=== PATIENT | female | born 1995 | race Caucasian/White ===

== ENCOUNTER 2018-08-19 22:47 | Emergency (ER) | payer OTHER ==
[~2018-08-19] VITALS: Ht 175.3 cm; Wt 131.5 kg
[2018-08-19 23:08] VITALS: BP 126/77
--- NOTE | 2018-08-19 23:11 | NUR ---
PT AMBULATED TO LOBBY WITH VSS. PROVIDING URINE.
--- NOTE | 2018-08-20 | NUR ---
PT BIB FRIEND C/O SOB, ANXIETY, CHEST PRESSURE, LEFT ARM TINGLING X8 HOURS. PT STATES "I AM HAVING HEART ATTACK SYMPTOMS, AND I JUST WANT TO GET A EKG TO RULE OUT IF IM HAVING A HEART ATTACK OR NOT". PT STATES SHE DRANK A LOT OF ALCOHOL YESTERDAY. --DENIES N/V/D. SPEECH CLEAR. SMILE SYMETTRICAL. 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 LUNG SOUNDS CLEAR BL. BOWEL SOUNDS ACTIVE X4 QUAD. PMH: ANXIETY RX: SERTRALINE
[2018-08-20] MEDS ORDERED: LORazepam 2 MG/ML VIAL IM ONE (00:25)
--- NOTE | 2018-08-20 00:50 | NUR ---
PATIENT EXPRESSING WISH TO LEAVE FACILITY.
[2018-08-20 01:01] VITALS: BP 119/82
--- NOTE | 2018-08-20 01:01 | NUR ---
Patient discharged with v/s stable. Written and verbal after care instructions given and explained. Patient alert, oriented and verbalized understanding of instructions. Ambulatory with steady gait. All questions addressed prior to discharge. ID band removed. Patient advised to follow up with PMD. Rx of XANAX 0.5MG given. Patient educated on indication of medication including possible reaction and side effects. Opportunity to ask questions provided and answered.
== END 2018-08-20 01:01 | disposition home or self-care (01) ==
LOC: MED 22:47
DX: F41.0 Panic disorder [episodic paroxysmal anxiety] (principal)
CPT/HCPCS: 96372; 99284; J2060